=== PATIENT | female | born 1955 | race Caucasian/White ===

== ENCOUNTER → 2016-12-08 | Outpatient (CLI) | payer OTHER ==
[2014-03-03 08:33] VITALS: BP 128/60
--- NOTE | 2016-12-08 19:45 | CARD ---
APPROVED REPORT EXAM: Two-dimensional and M-mode echocardiogram with Doppler and color Doppler. Other Information Quality : Average Rhythm : NSR INDICATION Aortic Valve Disease Murmur 2D DIMENSIONS RVDd2.0 (2.9-3.5cm)Left Atrium(2D)3.7 (1.6-4.0cm) IVSd0.8 (0.7-1.1cm)Aortic Root(2D)2.3 (2.0-3.7cm) LVDd4.4 (3.9-5.9cm)LVOT Diameter2.0 (1.8-2.4cm) PWd0.8 (0.7-1.1cm)LVDs2.3 (2.5-4.0cm) FS (%) 30.9 %SV70.6 ml LVEF(%)60.0 (>50%) Aortic Valve AoV Peak Gaurang.414.7cm/sAoV VTI75.5cm AO Peak GR.68.8mmHgLVOT Peak Gaurang.105.4cm/s LVOT VTI 18.40cmAO Mean GR.43mmHg DOTTY (VMAX)0.59qq3WFJ (VTI)0.80cm2 Mitral Valve MV E Mscypvft22.4cm/sMV DECEL IYNP753xh MV A Oevffizy840.6cm/sMV E Mean Gr.2mmHg MV KKY09nqO/A Ratio0.7 MV A Bauerddt500mwMBN (PHT)2.98cm2 TDI E/Lateral E'15.2E/Medial E'11.9 Pulmonary Valve PV Peak Bzvafmzp26.4cm/sPV Peak Grad.3mmHg RVOT VTI13.3cm Tricuspid Valve TR P. Aklxrcon093ok/sRAP GSRUWBCS1jxJv TR Peak Gr.06wnSnGSQA38pwFf LEFT VENTRICLE The left ventricle is normal size. There is normal left ventricular wall thickness. Left ventricle sy stolic function is normal. The Ejection Fraction is 60%. There is normal LV segmental wall motion. Ti ssue Doppler imaging reveals mild left ventricular diastolic dysfunction. Transmitral Doppler flow pa ttern is Grade I-abnormal relaxation pattern. There is no ventricular septal defect visualized. RIGHT VENTRICLE The right ventricle is normal size. The right ventricular systolic function is normal. ATRIA The left atrium size is normal. The right atrium size is normal. The interatrial septum is intact wit h no evidence for an atrial septal defect or patent foramen ovale as noted on 2-D or Doppler imaging. AORTIC VALVE Doppler and Color Flow revealed no significant aortic regurgitation. The doppler interrogation of thi s prosthetic valve is suboptimal and of doubtfull accuracy The prosthetic aortic valve is not well vi sualized. prosthesis leaflets are not well visualized. MITRAL VALVE The mitral valve leaflets are thickened. There is no mitral valve stenosis. Doppler and Color Flow re vealed mild mitral regurgitation. TRICUSPID VALVE The tricuspid valve is normal in structure. Doppler and Color Flow revealed mild tricuspid regurgitat ion. The PA pressure was estimated at 31 mmHg. There is no tricuspid valve stenosis. PULMONIC VALVE The pulmonic valve is not well visualized. Doppler and Color Flow revealed no pulmonic valvular regur gitation. There is no pulmonic valvular stenosis. GREAT VESSELS The aortic root is normal in size. Normal pulmonary venous flow (Doppler). The IVC is normal in size and collapses >50% with inspiration. PERICARDIAL EFFUSION There is no evidence of significant pericardial effusion. Critical Notification Critical Value: No <Conclusion> Left ventricle systolic function is normal. The Ejection Fraction is 60%. Tissue Doppler imaging reveals mild left ventricular diastolic dysfunction. Transmitral Doppler flow pattern is Grade I-abnormal relaxation pattern. The left atrium size is normal. The right atrium size is normal. The doppler interrogation of this prosthetic valve is suboptimal and of doubtfull accuracy The prosthetic aortic valve is not well visualized. prosthesis leaflets are not well visualized. Doppler and Color Flow revealed mild mitral regurgitation. The mitral valve leaflets are thickened. Doppler and Color Flow revealed mild tricuspid regurgitation. The PA pressure was estimated at 31 mmHg. The pulmonic valve is not well visualized. There is no evidence of significant pericardial effusion.
== END | disposition home or self-care (01) ==
LOC: ECHO 10:58
PROVIDERS: ATTEND Internal Medicine Cardiovascular Disease
DX: I08.1 Rheumatic disorders of both mitral and tricuspid valves (principal); F32.89 Other specified depressive episodes; Z95.2 Presence of prosthetic heart valve; Z87.74 Personal history of (corrected) congenital malformations of heart and circulatory system
CPT/HCPCS: 93306

== ENCOUNTER → 2018-02-23 | Outpatient (CLI) | payer MEDICARE, OTHER ==
[2014-03-03 08:33] VITALS: BP 128/60
--- NOTE | 2018-02-24 14:02 | CARD ---
MR#: [id number] Date of Study: 02/23/2018 Ordering Physician: BRIAN CAIN, Referring Physician: BRIAN CAIN, Tech: Lovely Ervin APPROVED REPORT EXAM: Two-dimensional and M-mode echocardiogram with Doppler and color Doppler. Other Information Quality : AverageHR: 84bpm Rhythm : NSR INDICATION Post Aortic valve replacement 2D DIMENSIONS Left Atrium(2D)3.1 (1.6-4.0cm)IVSd1.1 (0.7-1.1cm) Aortic Root(2D)2.5 (2.0-3.7cm)LVDd4.1 (3.9-5.9cm) LVOT Diameter2.0 (1.8-2.4cm)PWd0.9 (0.7-1.1cm) LVDs2.8 (2.5-4.0cm)FS (%) 32.8 % SV46.6 mlLVEF(%)62.0 (>50%) Aortic Valve AoV Peak Gaurang.370.2cm/sAoV VTI65.0cm AO Peak GR.54.8mmHgLVOT Peak Gaurang.97.0cm/s LVOT VTI 19.87cmAO Mean GR.23mmHg DOTTY (VMAX)0.04sk9BPM (VTI)0.96cm2 Mitral Valve MV E Bvtbzxad16.2cm/sMV DECEL TLTA505eo MV A Vqnezypu39.8cm/sMV YDR74ol E/A Ratio0.8MVA (PHT)3.29cm2 TDI E/Lateral E'14.5E/Medial E'11.0 Pulmonary Valve PV Peak Typwqivi833.6cm/sPV Peak Grad.15mmHg Tricuspid Valve TR P. Fhexoodm802xk/sTR Peak Gr.31mmHg LEFT VENTRICLE The left ventricle is normal size. There is normal left ventricular wall thickness. The left ventricu lar systolic function is normal and the ejection fraction is within normal range. The Ejection Fracti on is 62%. There is normal LV segmental wall motion. Transmitral Doppler flow pattern is Grade I-abno rmal relaxation pattern. RIGHT VENTRICLE The right ventricle is normal size. There is normal right ventricular wall thickness. The right ventr icular systolic function is normal. ATRIA The left atrium size is normal. The right atrium size is normal. The interatrial septum is intact wit h no evidence for an atrial septal defect or patent foramen ovale as noted on 2-D or Doppler imaging. AORTIC VALVE The aortic valve is not well visualized. Calculated aortic valve area is .96 cm2 with maximum pressur e gradient of 55 mmHg and mean pressure gradient of 23 mmHg. This is a mechanical valve and it seems to be working normally There is a bi-leaflet ([employer]) mechanical aortic valve prosthesis. MITRAL VALVE The mitral valve is thickened but opens well. There is no mitral valve stenosis. Doppler and Color-fl ow revealed trace mitral regurgitation. TRICUSPID VALVE The tricuspid valve is normal in structure Doppler and Color Flow revealed trace tricuspid regurgitat ion. PULMONIC VALVE The pulmonic valve is not well visualized. Doppler and Color Flow revealed no pulmonic valvular regur gitation. GREAT VESSELS The aortic root is normal in size. PERICARDIAL EFFUSION There is no evidence of significant pericardial effusion. Critical Notification Critical Value: No <Conclusion> The left ventricular systolic function is normal and the ejection fraction is within normal range. T he Ejection Fraction is 62%. Transmitral Doppler flow pattern is Grade I-abnormal relaxation pattern. The left atrium size is normal. The right atrium size is normal. The aortic valve is not well visualized. Doppler and Color-flow revealed trace mitral regurgitation. The mitral valve is thickened but opens well. Doppler and Color Flow revealed trace tricuspid regurgitation. The pulmonic valve is not well visualized. There is no evidence of significant pericardial effusion. Signed by : Brian Cain MD Electronically Approved : 02/24/2018 14:01:05
== END | disposition home or self-care (01) ==
LOC: ECHO 12:43
PROVIDERS: ATTEND Internal Medicine Cardiovascular Disease
DX: Z48.812 Encounter for surgical aftercare following surgery on the circulatory system (principal); Z95.2 Presence of prosthetic heart valve
CPT/HCPCS: 93306

== ENCOUNTER 2019-03-01 20:31 | Inpatient (IN) | payer BC ==
[~2019-03-01] VITALS: Ht 147.3 cm; Wt 60.3 kg
[~2019-03-01 20:31] MED LIST: BUPR300T3 PO; CA C1TAB38 PO; DULO60CA6 PO; PRAM0.255 PO; PRAM0.5T5 PO; RALO60TA PO; WARF4TAB68 PO; WARF6TAB49 PO
[2019-03-01] MEDS ORDERED: DIPHTH,PERTUSS(ACELL),TET TOX 0.5 ML DISP.SYRIN. VAX IM ONE (21:30)
[2019-03-01] MEDS ORDERED: NEOMY/BACITR/POLYMYXIN OINT PACKET. TP ONE (21:30)
[2019-03-01] MEDS ORDERED: LIDOCAINE 1%/EPI 1:100,000 20 ML VIAL. SQ ONE (21:30)
--- NOTE | 2019-03-01 21:55 | RAD ---
CT head without contrast PQRS statement: CT scans at this facility use dose reduction including either automated exposure control, iterative reconstructions, and /or weight based radiation dosing via mA and kV modification when appropriate to reduce radiation dose to as low as reasonably achievable. HISTORY: Fell and hit head, anticoagulated. COMPARISON: CT head January 13, 2019. TECHNIQUE: Noncontrast imaging of the head with coronal reconstructions was acquired. FINDINGS: Mild enlargement of the retrocerebellar cistern an anatomic variant stable to the prior study. Prior right frontoparietal craniotomy with mild subjacent dural thickening is stable. Generalized brain atrophy is stable. Subtle linear density within the posterior right sylvian fissure and upper temporal lobe sulci images 13-15 new from prior imaging likely a small volume of acute subarachnoid hemorrhage. No mass, hydrocephalus or new or acute infarction. 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 Imaged orbits, mastoids and bones are unremarkable. Mild right periorbital soft tissue edema and swelling. IMPRESSION: Small volume of acute subarachnoid hemorrhage within the right sylvian fissure and temporal lobe sulci as described above, new from prior imaging. FOR INTERNAL CODING PURPOSES Critical result: Findings discussed with SONIA RAMAN MD at 03/01/2019 9:52 PM. RESULT CODE: (C) Electronically signed by: Leeroy Harvey MD (03/01/2019 9:53 PM) [facility]
--- NOTE | 2019-03-01 22:01 | PHYS DOC ---
Past Medical History Past Medical History: Other Additional Past Medical Histor: subdural hematoma (SONIA RAMAN APRN) Past Surgical History: Appendectomy, Hip Replacement, Tonsillectomy, Other Additional Past Surgical Histo: PROSTATIC AORTIC VALVE, HERNIA (SONIA RAMAN APRN) Alcohol Use: None Drug Use: None (SONIA RAMAN APRN) Attending Signature I have participated in the care of this patient and I have reviewed and agree with all pertinent clinical information above including history, exam, and recommendations. (IZAIAH PERES MD) Adult General Chief Complaint Chief Complaint: MECHANICAL FALL HPI HPI Patient is a 63 year old female who presents to the emergency department with complaints of right forehead lacerations, an abrasion to her left palm, and dull headache. Patient states she was walking up a hill when she tripped on the sidewalk and fell forward hitting her head on the cement. She denies any loss of consciousness, nausea, vomiting, vision changes, neck pain, back pain, numbness, tingling, or weakness. Patient states earlier this year she had a subdural bleed in which she can have surgery for. She currently rates her pain as 3 out of 10 on the pain scale, she denies any alleviating or exacerbating factors. Patient is unsure of when her last tetanus shot was. She states that she currently takes Coumadin for her aortic valve replacement. (SONIA RAMAN APRN) Review of Systems Review of Systems Constitutional: Denies fever or chills [] Eyes: Denies change in visual acuity, redness, or eye pain [] HENT: Denies nasal congestion or sore throat [] Respiratory: Denies cough or shortness of breath [] Cardiovascular: No additional information not addressed in HPI [] GI: Denies abdominal pain, nausea, vomiting, or diarrhea [] Musculoskeletal: Denies back pain or joint pain [] Integument: Denies rash; see history of present illness Neurologic: Denies focal weakness or sensory changes; see history of present illness Complete systems were reviewed and found to be within normal limits, except as documented in this note. (SONIA RAMAN APRN) Current Medications Current Medications Current Medications Medications (Trade) Dose Ordered Sig/Siela Start Time Stop Time Status Last Admin Dose Admin Diphtheria/ Tetanus/Acell Pertussis (Boostrix) 0.5 ml ONCE ONCE 03/01/19 21:30 03/01/19 21:31 DC 03/01/19 21:32 0.5 ML Lidocaine/ Epinephrine (LIDOCAINE 1%-EPI 1:100,000 Multi-Dose) 20 ml 1X ONCE 03/01/19 21:30 03/01/19 21:31 DC Neomycin/ Polymyxin/ Bacitracin (Triple Antibiotic Ointment) 1 pkt 1X ONCE 03/01/19 21:30 03/01/19 21:31 DC (IZAIAH PERES MD) Allergies Allergies Allergies Coded Allergies Type Severity Reaction Last Updated Verified Tetracyclines Allergy Intermediate VOMITING 03/03/14 Yes ampicillin Allergy Intermediate RASH 03/03/14 Yes vancomycin Allergy Intermediate Hives 12/10/18 Yes (IZAIAH PERES MD) Physical Exam Physical Exam Constitutional: Well developed, well nourished, no acute distress, non-toxic appearance. [] HENT: Normocephalic, atraumatic, bilateral external ears normal, oropharynx moist, no oral exudates, nose normal. [] Eyes: PERRLA, EOMI, conjunctiva normal, no discharge. [] Neck: Normal range of motion, no tenderness, supple, no stridor. [] Cardiovascular:Heart rate regular rhythm, no murmur [] Lungs & Thorax: Bilateral breath sounds clear to auscultation [] Skin: Warm, dry, no erythema, no rash; 2 lacerations noted to right forehead the superior laceration is 1 cm and L-shaped without any active bleeding, a second laceration is 3 cm and is located just superior to the right eye extending through the eyebrow out any active bleeding [] Back: No tenderness, no CVA tenderness. [] Extremities: No cyanosis, no clubbing, ROM intact, no edema. [] Neurologic: Alert and oriented X 3, normal motor function, normal sensory function, no focal deficits noted. [] Psychologic: Affect normal, judgement normal, mood normal. [] (SONIA RAMAN APRN) Current Patient Data Vital Signs Vital Signs Date Time Temp Pulse Resp B/P (MAP) Pulse Ox O2 Delivery O2 Flow Rate FiO2 03/01/19 20:44 98.1 98 16 163/60 (94) 95 Room Air 98.1 (IZAIAH PERES MD) Lab Values Laboratory Tests Test 03/01/19 21:55 White Blood Count 13.1 x10^3/uL (4.0-11.0) H Red Blood Count 4.98 x10^6/uL (3.50-5.40) Hemoglobin 13.3 g/dL (12.0-15.5) Hematocrit 40.9 % (36.0-47.0) Mean Corpuscular Volume 82 fL (79-100) Mean Corpuscular Hemoglobin 27 pg (25-35) Mean Corpuscular Hemoglobin Concent 33 g/dL (31-37) Red Cell Distribution Width 13.4 % (11.5-14.5) Platelet Count 315 x10^3/uL (140-400) Neutrophils (%) (Auto) 84 % (31-73) H Lymphocytes (%) (Auto) 8 % (24-48) L Monocytes (%) (Auto) 7 % (0-9) Eosinophils (%) (Auto) 1 % (0-3) Basophils (%) (Auto) 1 % (0-3) Neutrophils # (Auto) 11.0 x10^3/uL (1.8-7.7) H Lymphocytes # (Auto) 1.0 x10^3/uL (1.0-4.8) Monocytes # (Auto) 0.9 x10^3/uL (0.0-1.1) Eosinophils # (Auto) 0.1 x10^3/uL (0.0-0.7) Basophils # (Auto) 0.1 x10^3/uL (0.0-0.2) Prothrombin Time 27.8 SEC (11.7-14.0) H Prothrombin Time INR 2.6 (0.8-1.1) H Activated Partial Thromboplast Time 36 SEC (24-38) Laboratory Tests 03/01/19 21:55 (IZAIAH PERES MD) Lab Values Laboratory Tests Test 03/01/19 21:55 White Blood Count 13.1 x10^3/uL (4.0-11.0) H Red Blood Count 4.98 x10^6/uL (3.50-5.40) Hemoglobin 13.3 g/dL (12.0-15.5) Hematocrit 40.9 % (36.0-47.0) Mean Corpuscular Volume 82 fL (79-100) Mean Corpuscular Hemoglobin 27 pg (25-35) Mean Corpuscular Hemoglobin Concent 33 g/dL (31-37) Red Cell Distribution Width 13.4 % (11.5-14.5) Platelet Count 315 x10^3/uL (140-400) Neutrophils (%) (Auto) 84 % (31-73) H Lymphocytes (%) (Auto) 8 % (24-48) L Monocytes (%) (Auto) 7 % (0-9) Eosinophils (%) (Auto) 1 % (0-3) Basophils (%) (Auto) 1 % (0-3) Neutrophils # (Auto) 11.0 x10^3/uL (1.8-7.7) H Lymphocytes # (Auto) 1.0 x10^3/uL (1.0-4.8) Monocytes # (Auto) 0.9 x10^3/uL (0.0-1.1) Eosinophils # (Auto) 0.1 x10^3/uL (0.0-0.7) Basophils # (Auto) 0.1 x10^3/uL (0.0-0.2) Prothrombin Time 27.8 SEC (11.7-14.0) H Prothrombin Time INR 2.6 (0.8-1.1) H Activated Partial Thromboplast Time 36 SEC (24-38) Laboratory Tests 03/01/19 21:55 (SONIA RAMAN APRN) EKG EKG [] (SONIA RAMAN APRN) Radiology/Procedures Radiology/Procedures PROCEDURE: CT HEAD WO CONTRAST CT head without contrast PQRS statement: CT scans at this facility use dose reduction including either automated exposure control, iterative reconstructions, and /or weight based radiation dosing via mA and kV modification when appropriate to reduce radiation dose to as low as reasonably achievable. HISTORY: Fell and hit head, anticoagulated. COMPARISON: CT head January 13, 2019. TECHNIQUE: Noncontrast imaging of the head with coronal reconstructions was acquired. FINDINGS: Mild enlargement of the retrocerebellar cistern an anatomic variant stable to the prior study. Prior right frontoparietal craniotomy with mild subjacent dural thickening is stable. Generalized brain atrophy is stable. Subtle linear density within the posterior right sylvian fissure and upper temporal lobe sulci images 13-15 new from prior imaging likely a small volume of acute subarachnoid hemorrhage. No mass, hydrocephalus or new or acute infarction. 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 Imaged orbits, mastoids and bones are unremarkable. Mild right periorbital soft tissue edema and swelling. IMPRESSION: Small volume of acute subarachnoid hemorrhage within the right sylvian fissure and temporal lobe sulci as described above, new from prior imaging. FOR INTERNAL CODING PURPOSES Critical result: Findings discussed with SONIA RAMAN MD at 03/01/2019 9:52 PM. Laceration #1 Repair by me: Anesthesia: 1% lidocaine locally with 1% epi Location: Superior right forehead Tendon/Joint/Nerves: No injury Foreign body: None detected after copious irrigation and exploration Technique: 3 Simple Interrupted Sutures with 6-0 Ethilon Complexity: No subcutaneous sutures/mucosal repair/edge excision Post Closure Length: 1 cm Laceration #2 Repair by me: Anesthesia: 1% lidocaine locally with 1% epi Location: Inferior right forehead Tendon/Joint/Nerves: No injury Foreign body: None detected after copious irrigation and exploration Technique: 5 Simple Interrupted Sutures with 6-0 Ethilon Complexity: No subcutaneous sutures/mucosal repair/edge excision Post Closure Length: 3 cm Patient's bleeding was easily controlled in the department and there is no indication of anemia. No evidence of compartment syndrome, neurologic injury, vascular injury, open joint, tendon laceration, or foreign body. (SONIA RAMAN QUILL FIXER) Course & Med Decision Making Course & Med Decision Making Pertinent Labs and Imaging studies reviewed. (See chart for details) dx: Acute subarachnoid hemorrhage, facial laceration 2157- Spoke with Renuka ORNAMENT STITCHER with Dr. Brito will admit patient to ICU with q2 hour neuro checks. 2204- Spoke with Dr. Aguillon who is the admitting physician, and care was assumed following discussion of patient. Patient's vital signs stable. Patient remains afebrile, appears nontoxic, respirations even and unlabored. Patient will be admitted to the ICU floor. Patient's case and plan of care also discussed with Dr. Peres 2239- Advised Renuka of pt INR will check with cardilogy about reversing coumadin, goal is INR of 1.4 2253- Spoke with Dr. Salcido, advised of need to reverse coumadin. Dr. Salcido is in agreement will order vitamin K and FFP [] (SONIA RAMAN APRN) Dragon Disclaimer Dragon Disclaimer This electronic medical record was generated, in whole or in part, using a voice recognition dictation system. (SONIA RAMAN APRN) Departure Departure Impression: Primary Impression: Subarachnoid hemorrhage Additional Impression: Facial laceration Disposition: ADMITTED INPATIENT Admitting Physician: Jim Aguillon (SONIA RAMAN QUILL FIXER) Condition: STABLE Referrals: BERTA REEDER MD (PCP) Problem Qualifiers Additional Impression: Facial laceration Encounter type: initial encounter Qualified Codes: S01.81XA - Laceration without foreign body of other part of head, initial encounter SONIA RAMAN APRN Mar 01, 2019 22:01 IZAIAH PERES MD Mar 02, 2019 00:54
[2019-03-01 22:03] LABS: BASO # 0.1 x10^3/uL (0.0-0.2); BASO % 1 % (0-3); EOS # 0.1 x10^3/uL (0.0-0.7); EOS % 1 % (0-3); HEMATOCRIT 40.9 % (36.0-47.0); HEMOGLOBIN 13.3 g/dL (12.0-15.5); LYMPH % 8 % (24-48); MEAN CORPUSCULAR HEMOGLOBIN 27 pg (25-35); MEAN CORPUSCULAR HGB CONC 33 g/dL (31-37); MEAN CORPUSCULAR VOLUME 82 fL (79-100); MONO # 0.9 x10^3/uL (0.0-1.1); MONO % 7 % (0-9); NEUT % 84 % (31-73); PLATELET COUNT 315 x10^3/uL (140-400); RED BLOOD COUNT 4.98 x10^6/uL (3.50-5.40); RED CELL DISTRIBUTION WIDTH 13.4 % (11.5-14.5); WHITE BLOOD COUNT 13.1 x10^3/uL (4.0-11.0)
[2019-03-01 22:14] LABS: PROTHROMBIN TIME PATIENT 27.8 SEC (11.7-14.0)
[2019-03-01] MEDS ORDERED: MORPHINE SULFATE 4 MG/ML VIAL. IV PRN (23:00)
[2019-03-01] MEDS ORDERED: ONDANSETRON PF 4 MG/2 ML VIAL. IV PRN (23:00)
[2019-03-01] MEDS ORDERED: PHYTONADIONE 10 MG/ML AMPUL. SQ ONE (23:00)
[2019-03-01] MEDS ORDERED: hydrALAZINE 20 MG/ML VIAL. IVP ONE (23:15)
[2019-03-02] VITALS (23 sets, daily range): BP systolic 114–149; BP diastolic 50–75
--- NOTE | 2019-03-02 01:00 | NUR ---
Patient admitted to room 110 from ER. Patient moved self from ER cart to ICU bed. Monitor on. SR/ST noted. Patient A&Ox4. JAIR. JOSÉ. . stitched laceration on right forehead noted. Patient with swollen and bruised right eyebrow. No c/o pain or discomfort at this time. Call light is within reach. Blood consent obtained from patient. Will monitor.
[2019-03-02] MEDS ORDERED: diphenhydrAMINE 50 MG/ML VIAL IVP PRN (04:45)
--- NOTE | 2019-03-02 05:17 | NUR ---
0232- First unit of FFP started. 0333- Patient c/o h/a at 4/10 on scale. Morphine 4mg IV given per PRN order. VSS. 0400-First unit of FFP ended. Patient c/o itching all over. Small red bumps noted on patient's skin. VSS. Patient states that she has never had a reaction morphine. Blood bank notified of rash. Lin from blood bank told this nurse to call the doctor and see if he wants the second unit of FFP given. 0427-Dr. Aguillon notified of patient rash in relation to FFP and the morphine that was given. Order received for benadryl IV PRN and that he does not want patient to receive the second unit of FFP. VSS. Will monitor.
--- NOTE | 2019-03-02 09:20 | PDOC ---
Provider Note Provider Note dictated MARGO MACEDO MD Mar 02, 2019 09:20
--- NOTE | 2019-03-02 10:14 | HP ---
ADMIT DATE: CHIEF COMPLAINT: Fall. 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 Brito. She has had slow recovery, but is done better until recently; and then, on the day of admission had a fall, tripping on the sidewalk and struck her head. She had a laceration on the right forehead repaired in the ER, but CT scan showed evidence of a small amount of subarachnoid hemorrhage in the right sylvian fissure. She is anticoagulated on warfarin for aortic valve replacement, so she was given vitamin K and FFP for an INR of 2.7 and transferred to the ICU, where she is alert with mild headache and dizziness as her only complaints. Past surgical history is well documented in the old records. No specific drug allergies or other known medical problems. SOCIAL HISTORY: She is , lives alone, not employed, nondrinker, nonsmoker. FAMILY HISTORY: Unremarkable. REVIEW OF SYSTEMS: No other complaints. OBJECTIVE: HEENT: She has sutured vertical right forehead laceration. There is some bruising around that area and around the right eye. EOMs are full. Rest is unremarkable. NECK: No masses, nodes or bruits. LUNGS: Clear. CARDIOVASCULAR: Regular rate. The aortic valve murmur is heard from valve replacement. ABDOMEN: Soft, benign and nontender. EXTREMITIES: Unremarkable. NEUROLOGIC: Physiologic, nonfocal, moves all extremities, oriented x 4. Cranial nerves appear to be intact. ASSESSMENT: Traumatic brain injury with a small amount of subarachnoid hemorrhage in an anticoagulated patient. PLAN: For Neurosurgical consultation. MARGO MACEDO MD DR: GENE/lea JOB#: [id number] / [id number]
[2019-03-02 10:28] LABS: CALCIUM 8.5 mg/dL (8.5-10.1); CREATININE 0.6 mg/dL (0.6-1.0); POTASSIUM 3.8 mmol/L (3.5-5.1)
--- NOTE | 2019-03-02 12:33 | RAD ---
Examination: CT HEAD WO CONTRAST History: Subarachnoid hemorrhage follow-up Comparison/Correlation: 03/01/2019 CT head without contrast Findings: Axial images of the head were obtained without contrast. Atrophy is present. No midline shift, or mass effect. Right high frontal flory hole defect is present. Soft tissue thickening and/or subgaleal fluid of the frontal scalp again seen. Soft tissue edema or swelling of the right eyelid noted. Previously described temporal sulcus linear density is less evident in the interval best seen currently on images 15-16 of series 2. Impression: Subarachnoid hemorrhage previously reported is less evident in the interval. PQRS Compliance Statement: One or more of the following individualized dose reduction techniques were utilized for this examination: 1. Automated exposure control 2. Adjustment of the mA and/or kV according to patient size 3. Use of iterative reconstruction technique Electronically signed by: Dion Stafford MD (03/02/2019 12:30 PM) [facility]
[2019-03-02] MEDS: DULoxetine HCL 30 MG CAPSULE.DR PO SCH (14:21)
[2019-03-02] MEDS: buPROPion XL 150 MG TAB.ER.24H. PO SCH (14:21)
[2019-03-02] MEDS: RALOXIFENE 60 MG TABLET. PO SCH (14:21)
--- NOTE | 2019-03-02 14:47 | PDOC ---
Provider Note Provider Note Patient seen and examined at 1245 tripped and fell on curb yesterday CT head with Small SAH exam: neuro intact, sutured laceration over right eye with bruising F/U CT stable Coumadin was reversed in ED ok to transfer to floor will follow SIMON GEE APRN Mar 02, 2019 14:47
--- NOTE | 2019-03-02 15:22 | NUR ---
RN NOTE patient transferred to [facility] report called to Anastasia BLAS. patient taken up via wheelchair with this RN. patients notified of transfer
--- NOTE | 2019-03-02 16:28 | NUR ---
SS following for discharge planning. SS reviewed pt chart. Pt transferred from ICU to room 660. Pt is from home and is currently on room air. Kimberly WAITE, notified.
[2019-03-02] MEDS ORDERED: ACETAMINOPHEN 325 MG TABLET. PO PRN (18:15)
[2019-03-02] MEDS: CALCIUM CARB/VIT D3 500/200 TABLET. PO SCH (18:15)
[2019-03-02] MEDS: PRAMIPEXOLE 0.25 MG TABLET. PO SCH (21:40)
[2019-03-03 03:39] VITALS: BP 129/44
[2019-03-03 05:27] LABS: PROTHROMBIN TIME PATIENT 16.5 SEC (11.7-14.0)
[2019-03-03 07:15] VITALS: BP 117/62
--- NOTE | 2019-03-03 08:45 | PDOC ---
Provider Note Provider Note remains alert, vss- inr 1.4, sah smaller last ct- will not resume warf until 03/04 re aortic valve need- may need short term rehab as she lives alone MARGO MACEDO MD Mar 03, 2019 08:45
[2019-03-03] MEDS: RALOXIFENE 60 MG TABLET. PO SCH (09:06)
[2019-03-03] MEDS: buPROPion XL 150 MG TAB.ER.24H. PO SCH (09:06)
[2019-03-03] MEDS: DULoxetine HCL 30 MG CAPSULE.DR PO SCH (09:06)
[2019-03-03 11:23] VITALS: BP 114/60
[2019-03-03 15:00] VITALS: BP 122/64
[2019-03-03] MEDS: CALCIUM CARB/VIT D3 500/200 TABLET. PO SCH (17:49)
[2019-03-03 19:55] VITALS: BP 121/65
[2019-03-03] MEDS: PRAMIPEXOLE 0.25 MG TABLET. PO SCH (21:21)
[2019-03-03 23:31] VITALS: BP 133/69
[2019-03-04 03:52] VITALS: BP 122/55
[2019-03-04 05:17] LABS: PROTHROMBIN TIME PATIENT 13.8 SEC (11.7-14.0)
[2019-03-04 07:00] VITALS: BP 123/71
[2019-03-04] MEDS: RALOXIFENE 60 MG TABLET. PO SCH (09:06)
[2019-03-04] MEDS: buPROPion XL 150 MG TAB.ER.24H. PO SCH (09:06)
[2019-03-04] MEDS: CALCIUM CARB/VIT D3 500/200 TABLET. PO SCH (09:06)
[2019-03-04] MEDS: DULoxetine HCL 30 MG CAPSULE.DR PO SCH (09:06)
--- NOTE | 2019-03-04 10:41 | PN ---
DATE: 03/04/2019 DAILY PROGRESS NOTE LOCATION: She is in room 660. SUBJECTIVE: The patient is awake, alert, has no major complaints other than her balance being somewhat off when she is working with physical therapy. OBJECTIVE: VITAL SIGNS: Stable. She is afebrile. She is awake, alert, oriented. She does have evidence of facial trauma on exam. CHEST: Clear. HEART: Regular. ABDOMEN: Benign. LABORATORY DATA: Nonfocal. Last CT of the head 2 days ago shows decrease in size of the subarachnoid hemorrhage. Therapy notes indicate a new on one and home with home health on the other with therapy planned for again today. IMPRESSION: 1. Subarachnoid hemorrhage, improving. 2. Prosthetic aortic valve with need of anticoagulation with anticoagulation restarted at this point in time. 3. Bañuelos syndrome. PLAN: Continue therapy with determination of appropriate discharge destination. Otherwise, same. ZAC REZA MD DR: BRITANY/lea JOB#: [id number] / [id number]
[2019-03-04 11:00] VITALS: BP 119/63
--- NOTE | 2019-03-04 12:24 | NUR ---
Received call from Dr. Dunn's nurse practitioner at 1220, this nurse was notified that the patient will have no surgical intervention at this time. The patient's coumadin can be resumed, ok for discharge from neurosurgical standpoint, a repeat cranial CT scan will be done in a week for follow up.
[2019-03-04 15:00] VITALS: BP 135/55
[2019-03-04] MEDS: WARFARIN 4 MG TABLET. PO SCH (16:20)
[2019-03-04 19:35] VITALS: BP 138/56
[2019-03-04] MEDS: PRAMIPEXOLE 0.25 MG TABLET. PO SCH (21:46)
[2019-03-04 23:35] VITALS: BP 131/63
[2019-03-05 03:35] VITALS: BP 128/63
[2019-03-05 05:18] LABS: PROTHROMBIN TIME PATIENT 14.3 SEC (11.7-14.0)
[2019-03-05 07:00] VITALS: BP 152/68
[2019-03-05] MEDS: RALOXIFENE 60 MG TABLET. PO SCH (09:06)
[2019-03-05] MEDS: DULoxetine HCL 30 MG CAPSULE.DR PO SCH (09:06)
[2019-03-05] MEDS: buPROPion XL 150 MG TAB.ER.24H. PO SCH (09:06)
[2019-03-05 10:49] VITALS: BP 147/62
--- NOTE | 2019-03-05 12:59 | PN ---
DATE: 03/05/2019 DAILY PROGRESS NOTE LOCATION: Room 660. SUBJECTIVE: The patient is awake, alert, has no major complaints. I was thinking this morning that she should probably do a short stint of rehabilitation living at home alone and being weaker. OBJECTIVE: VITAL SIGNS: Stable. She is afebrile. GENERAL: Again is awake, alert. HEENT: She has a healing laceration on right forehead from the fall. CHEST: Clear. HEART: Regular. ABDOMEN: Benign. LABORATORY DATA: INR this morning is 1.1 after reinstitution of warfarin yesterday. She is stable with no focal neurological deficits. IMPRESSION: 1. Subarachnoid hemorrhage, improving. 2. Prosthetic aortic valve with warfarin restarted. 3. Bañuelos syndrome. PLAN: Continue present, likely SNU first of the week. We will await blessings from Neurosurgery that no further workup needs to be done at this point in time prior to discharge. ZAC REZA MD DR: BRITANY/lea JOB#: [id number] / [id number]
[2019-03-05 14:48] VITALS: BP 145/67
[2019-03-05] MEDS: CALCIUM CARB/VIT D3 500/200 TABLET. PO SCH (16:57)
[2019-03-05] MEDS: WARFARIN 4 MG TABLET. PO SCH (16:57)
[2019-03-05 19:35] VITALS: BP 128/69
[2019-03-05] MEDS: PRAMIPEXOLE 0.25 MG TABLET. PO SCH (20:25)
[2019-03-05 23:35] VITALS: BP 126/66
[2019-03-06 03:35] VITALS: BP 128/77
[2019-03-06 05:38] LABS: PROTHROMBIN TIME PATIENT 14.4 SEC (11.7-14.0)
[2019-03-06 07:40] VITALS: BP 111/47
[2019-03-06] MEDS: DULoxetine HCL 30 MG CAPSULE.DR PO SCH (07:44)
[2019-03-06] MEDS: buPROPion XL 150 MG TAB.ER.24H. PO SCH (07:45)
[2019-03-06] MEDS: RALOXIFENE 60 MG TABLET. PO SCH (07:45)
--- NOTE | 2019-03-06 08:52 | PDOC3 ---
Discharge Summary Date of Admission: Mar 01, 2019 Date of Discharge: Mar 06, 2019 Follow-Up: 1-2 days (for suture removal and INR check, will schedule follow up CT Head later this week also) Admitting Diagnosis comment: Subarachnoid hemorrhage 2/2 fall Anticoagulation for hx of aortic valve replacement FINAL DIAGNOSIS Same as above Brief Hospital Course Ms. Clayton is a 63 year old female with Bañuelos syndrome and history of aortic valve replacement, who had traumatic bilateral subdural hematoma evacuated by right craniotomy in November of this year by Dr. Brito. She has had slow recovery, but is done better until recently; and then, on the day of admission had a fall, tripping on the sidewalk and struck her head. She had a laceration on the right forehead repaired in the ER, but CT scan showed evidence of a small amount of subarachnoid hemorrhage in the right sylvian fissure and temporal lobe sulci. She is anticoagulated on warfarin for aortic valve replacement, so she was given vitamin K and FFP for an INR of 2.7 and transferred to the ICU to be observed. She complained only of mild headache and dizziness. A follow up CT on 03/02/19 showed interval improvement. She was able to resume warfarin and showed no worsening in symptoms. On day of discharge, her INR was 1.2. Neurosurgery believed she was stable to be followed up as an outpatient, though she is unable to see Dr. Brito outside of the hospital due to being out of network for her insurance, so I will order a Head CT for follow up later this week. She will follow up in clinic on 03/08 for suture removal and INR check. She will be discharged to home with home health and focus on PT for balance, gait and transfers to decrease her fall risk. No medication changes were made. Ms. Clayton did receive a TDaP vaccination in the ED due to her laceration. CONDITION AT DISCHARGE: Improved, Stable Discharge Medications No medication changes were made. Vital Signs Vital Signs Date Time Temp Pulse Resp B/P (MAP) Pulse Ox O2 Delivery O2 Flow Rate FiO2 03/06/19 08:00 Room Air 03/06/19 07:40 98.5 94 18 111/47 (68) 95 98.5 Labs Laboratory Tests Test 03/05/19 04:00 03/06/19 04:55 Prothrombin Time 14.3 SEC (11.7-14.0) 14.4 SEC (11.7-14.0) Prothromb Time International Ratio 1.1 (0.8-1.1) 1.2 (0.8-1.1) Laboratory Tests Test 03/06/19 04:55 Prothrombin Time 14.4 SEC (11.7-14.0) Prothromb Time International Ratio 1.2 (0.8-1.1) Allergies Allergies Coded Allergies Type Severity Reaction Last Updated Verified Tetracyclines Allergy Intermediate VOMITING 03/03/14 Yes ampicillin Allergy Intermediate RASH 03/03/14 Yes vancomycin Allergy Intermediate Hives 12/10/18 Yes Disposition/Orders: D/C to Home w/ HH BERTA REEDER MD Mar 06, 2019 08:52
--- NOTE | 2019-03-06 10:32 | PDOC ---
Provider Note Provider Note patient may dc from NS standpoint will arrange for f/u CT head later this week for review LAZARUS REED MD Mar 06, 2019 10:32
--- NOTE | 2019-03-06 10:55 | NUR ---
Discharge Note: WAQAS LUGO J6 [facility] Discharge instructions and discharge home medications reviewed with Patient and a copy given. All questions have been answered and understanding verbalized. The following instructions and handouts were given: d/c instructions Discontinued lines and drains: Peripheral IV intact. Patient discharged to Home w/services with Spouse via Wheelchair
[2019-03-06] MEDS ORDERED: WARFARIN 7.5 MG TABLET. PO ONE (16:00)
== END 2019-03-06 12:18 | disposition home health service (06) | DRG 86 ==
LOC: ER 20:31 → 1 WEST ICU 22:05 → 6 SOUTH 03-02 15:12
PROVIDERS: ADMIT Family Medicine; ATTEND Family Medicine
PROC: 0HQ1XZZ Repair Face Skin, External Approach (ICD-10-PCS; principal; 2019-03-01)
PROC: 30233R1 Transfusion of Nonautologous Platelets into Peripheral Vein, Percutaneous Approach (ICD-10-PCS; 2019-03-02)
DX: S06.6X0A Traumatic subarachnoid hemorrhage without loss of consciousness, initial encounter (principal); R65.10 Systemic inflammatory response syndrome (SIRS) of non-infectious origin without acute organ dysfunction; S01.81XA Laceration without foreign body of other part of head, initial encounter; S60.512A Abrasion of left hand, initial encounter; Z96.649 Presence of unspecified artificial hip joint; W01.0XXA Fall on same level from slipping, tripping and stumbling without subsequent striking against object, initial encounter; Y93.01 Activity, walking, marching and hiking; Y99.8 Other external cause status; Z88.1 Allergy status to other antibiotic agents; Z88.0 Allergy status to penicillin; Z79.01 Long term (current) use of anticoagulants; Z90.49 Acquired absence of other specified parts of digestive tract; Z95.2 Presence of prosthetic heart valve; Y92.828 Other wilderness area as the place of occurrence of the external cause; Q96.9 Turner's syndrome, unspecified; Z91.81 History of falling
CPT/HCPCS: 12013; 36415; 36430; 70450; 80048; 85025; 85610; 85730; 86850; 86900; 86901; 86927; 90471; 90715; J1200; J2270; J3430; P9017; 97110; 97116; 97530; 99285-25; G0378

== ENCOUNTER → 2019-03-13 | Outpatient (CLI) | payer BC ==
[2019-03-06 07:40] VITALS: BP 111/47
--- NOTE | 2019-03-13 15:50 | KCIC ---
CT HEAD WO CONTRAST History: Subarachnoid hemorrhage Comparison: Exams dating back to 03/01/2019 Technique: Noncontrast CT imaging was performed of the head. Exposure: One or more of the following individualized dose reduction techniques were utilized for this examination: 1. Automated exposure control 2. Adjustment of the mA and/or kV according to patient size 3. Use of iterative reconstruction technique. Findings: No subarachnoid hemorrhage is identified on this exam. There again has been right frontal parietal craniotomy. There is no new intra-axial mass effect or midline shift. There is again [id number] generalized supratentorial atrophy, ventricular size stable. There is again what likely represents represents a small lacunar infarct of the right posterior insula. Prominence of retrocerebellar cistern is stable. There is incomplete fusion of posterior arch of C1 on developmental basis as seen previously. Mastoid air cells and visualized paranasal sinuses are aerated. Impression: 1. No intra-axial hemorrhage is identified on this exam. There is generalized supratentorial atrophy as seen previously. Electronically signed by: Rick Bolton MD (03/13/2019 3:47 PM) [id number]
== END | disposition home or self-care (01) ==
LOC: KCIC CT 12:03
PROVIDERS: ATTEND Family Medicine
DX: G31.89 Other specified degenerative diseases of nervous system (principal); M43.22 Fusion of spine, cervical region
CPT/HCPCS: 70450

== ENCOUNTER 2019-08-13 17:08 | Day surgery (SDC) | payer OTHER ==
[~2019-08-13 17:08] MED LIST changes: +BUPR150T8 PO; +WARF6TAB47 PO; +[UNRECOGNIZED DRUG - OTHER] PO
--- NOTE | 2019-08-13 20:22 | PDOC ---
Provider Note Provider Note called for arterial line placement. Unable to palpate radial arteries and poor Doppler response. Left femoral arterial #20 femoral catheter placed using sterile technique. Good blood return and wave form. Op site and taped securely SAL PATEL CRNA Aug 13, 2019 20:22
[2019-08-13] MEDS ORDERED: IV RINGERS,LACTATED 1000ML 1,000 ML IV ONE ×2 (20:45→23:30)
[2019-08-13 20:47] LABS: PROTHROMBIN TIME PATIENT 22.6 SEC (11.7-14.0)
[2019-08-13 20:51] LABS: AMYLASE 233 U/L (25-115); CALCIUM 8.3 mg/dL (8.5-10.1); CREATININE 0.6 mg/dL (0.6-1.0); GFR 100.6; LACTATE DEHYDROGENASE 292 U/L (81-234); POTASSIUM 3.5 mmol/L (3.5-5.1)
[2019-08-13 21:22] LABS: BILIRUBIN,URINE NEGATIVE (NEG); CLARITY,URINE CLEAR; COLOR,URINE YELLOW; NITRITE,URINE NEGATIVE (NEG); PROTEIN,URINE 30 mg/dL (NEG-TRACE); UROBILINOGEN,URINE 0.2 mg/dL (0.2 mg/dL)
[2019-08-13 21:25] LABS: BASE EXCESS ABG 0 mmol/L (-3-3); HCO3 ABG 24 mmol/L (21-28); PCO2 ABG 37 mmHg (35-46); PO2 ABG 467 mmHg (65-108); SAT O2 ABG 99 % (92-99)
[2019-08-13 21:29] LABS: RBC,URINE >40 /HPF (0-2)
[2019-08-13 21:30] LABS: WBC,URINE 20-40 /HPF (0-4)
[2019-08-13 21:31] LABS: BACTERIA,URINE 0 /HPF (0-FEW)
[2019-08-13 21:31] LABS: FIO2 ABG 100
[2019-08-13] MEDS: IV RINGERS,LACTATED 1000ML 1,000 ML IV SCH (21:45)
[2019-08-13] MEDS ORDERED: VECURONIUM BOLUS 10 MG VIAL. IV ONE (22:00)
[2019-08-13 23:10] LABS: BASO % 0 % (0-3); EOS % 0 % (0-3); HEMATOCRIT 35.9 % (36.0-47.0); HEMOGLOBIN 11.7 g/dL (12.0-15.5); LYMPH # 0.9 x10^3/uL (1.0-4.8); LYMPH % 5 % (24-48); MEAN CORPUSCULAR HEMOGLOBIN 27 pg (25-35); MEAN CORPUSCULAR HGB CONC 33 g/dL (31-37); MEAN CORPUSCULAR VOLUME 82 fL (79-100); MONO # 2.1 x10^3/uL (0.0-1.1); MONO % 10 % (0-9); NEUT # 16.8 x10^3/uL (1.8-7.7); NEUT % 85 % (31-73); PLATELET COUNT 227 x10^3/uL (140-400); RED BLOOD COUNT 4.39 x10^6/uL (3.50-5.40); RED CELL DISTRIBUTION WIDTH 16.2 % (11.5-14.5); WHITE BLOOD COUNT 19.8 x10^3/uL (4.0-11.0)
[2019-08-13 23:18] LABS: ALBUMIN 3.3 g/dL (3.4-5.0); DIRECT BILIRUBIN 0.1 mg/dL (0.0-0.2); MAGNESIUM 1.9 mg/dL (1.8-2.4); PHOSPHORUS 2.7 mg/dL (2.6-4.7); TOTAL BILIRUBIN 0.6 mg/dL (0.2-1.0); TOTAL PROTEIN 6.5 g/dL (6.4-8.2)
[2019-08-13] MEDS ORDERED: POTASSIUM CHLORIDE 20 MEQ TABLET.ER. PO ONE (23:45)
[2019-08-14 00:25] VITALS: BP 125/62
[2019-08-14] MEDS: VASOPRESSIN 20 UNIT in IV DEXTROSE 5% 100ML 100 ML IV PRN ×2 (00:32→18:39)
[2019-08-14 00:40] VITALS: BP 148/76
[2019-08-14 01:25] VITALS: BP 163/86
[2019-08-14 02:03] LABS: BASE EXCESS ABG 1 mmol/L (-3-3); HCO3 ABG 27 mmol/L (21-28); PCO2 ABG 49 mmHg (35-46); PO2 ABG 360 mmHg (65-108); SAT O2 ABG 99 % (92-99)
[2019-08-14 02:20] LABS: FIO2 ABG 100
[2019-08-14 02:22] LABS: BASO % 0 % (0-3); EOS % 0 % (0-3); HEMATOCRIT 31.6 % (36.0-47.0); HEMOGLOBIN 10.4 g/dL (12.0-15.5); LYMPH # 0.3 x10^3/uL (1.0-4.8); LYMPH % 1 % (24-48); MEAN CORPUSCULAR HEMOGLOBIN 27 pg (25-35); MEAN CORPUSCULAR HGB CONC 33 g/dL (31-37); MEAN CORPUSCULAR VOLUME 81 fL (79-100); MONO % 5 % (0-9); NEUT # 17.3 x10^3/uL (1.8-7.7); NEUT % 93 % (31-73); PLATELET COUNT 184 x10^3/uL (140-400); WHITE BLOOD COUNT 18.6 x10^3/uL (4.0-11.0)
[2019-08-14 02:29] LABS: PROTHROMBIN TIME PATIENT 20.3 SEC (11.7-14.0)
[2019-08-14 02:39] LABS: CALCIUM 8.3 mg/dL (8.5-10.1); CREATININE 0.6 mg/dL (0.6-1.0); GFR 100.6; POTASSIUM 3.4 mmol/L (3.5-5.1)
[2019-08-14 02:40] LABS: DIRECT BILIRUBIN 0.2 mg/dL (0.0-0.2); MAGNESIUM 1.7 mg/dL (1.8-2.4); PHOSPHORUS 2.5 mg/dL (2.6-4.7); TOTAL BILIRUBIN 0.6 mg/dL (0.2-1.0); TOTAL PROTEIN 6.2 g/dL (6.4-8.2)
[2019-08-14 02:41] LABS: AMYLASE 329 U/L (25-115); LACTATE DEHYDROGENASE 243 U/L (81-234)
[2019-08-14] MEDS ORDERED: POTASSIUM CHLORIDE 20 MEQ TABLET.ER. PO ONE (03:00)
[2019-08-14] MEDS ORDERED: ESMOLOL 2500MG/250ML PREMIX 250 ML IV PRN (03:30)
[2019-08-14] MEDS ORDERED: DEXTROSE 50% 25 GM / 50ML DISP.SYRIN. IV PRN (05:00)
[2019-08-14] MEDS ORDERED: IV DEXTROSE 5% 250 ML BAG. IV PRN (05:00)
[2019-08-14] MEDS ORDERED: INSULIN REGULAR VIAL 100 UNIT in IV NORMAL SALINE 100ML 100 ML IV PRN (05:00)
--- NOTE | 2019-08-14 07:56 | RAD ---
CHEST AP ONLY History: [facility] organ Comparison: August 13, 2019 Findings: Single view of the chest is submitted. There is again endotracheal tube with tip about 4 cm from cierra. There is enteric catheter coursing into the stomach. There again has been a median sternotomy. Cardiac silhouette is unchanged, not significantly enlarged. There is some increased left base airspace opacity. There is no dependent pleural fluid or pneumothorax. Impression: 1. There is increased left base infiltrate. Electronically signed by: Rick Bolton MD (08/14/2019 7:53 AM) [facility]
[2019-08-14 08:05] LABS: BASE EXCESS ABG 1 mmol/L (-3-3); HCO3 ABG 22 mmol/L (21-28); PCO2 ABG 27 mmHg (35-46); PO2 ABG 334 mmHg (65-108); SAT O2 ABG 99 % (92-99)
[2019-08-14 08:08] LABS: FIO2 ABG 100
[2019-08-14 08:21] LABS: BASO % 0 % (0-3); EOS % 0 % (0-3); HEMATOCRIT 32.8 % (36.0-47.0); HEMOGLOBIN 10.6 g/dL (12.0-15.5); LYMPH # 0.4 x10^3/uL (1.0-4.8); LYMPH % 2 % (24-48); MEAN CORPUSCULAR HEMOGLOBIN 27 pg (25-35); MEAN CORPUSCULAR HGB CONC 32 g/dL (31-37); MEAN CORPUSCULAR VOLUME 82 fL (79-100); MONO # 0.8 x10^3/uL (0.0-1.1); MONO % 4 % (0-9); NEUT # 17.7 x10^3/uL (1.8-7.7); NEUT % 94 % (31-73); PLATELET COUNT 189 x10^3/uL (140-400); RED BLOOD COUNT 4.01 x10^6/uL (3.50-5.40); RED CELL DISTRIBUTION WIDTH 16.3 % (11.5-14.5); WHITE BLOOD COUNT 18.9 x10^3/uL (4.0-11.0)
[2019-08-14 08:28] LABS: PROTHROMBIN TIME PATIENT 20.3 SEC (11.7-14.0)
[2019-08-14 08:35] LABS: CALCIUM 8.8 mg/dL (8.5-10.1); CREATININE 0.6 mg/dL (0.6-1.0); GFR 100.6
[2019-08-14 08:39] LABS: POTASSIUM 2.8 mmol/L (3.5-5.1)
--- NOTE | 2019-08-14 08:42 | PDOC ---
Provider Note Provider Note still alive on vent pending official neuro note re brain , then organ harvesting, not here MARGO MACEDO MD Aug 14, 2019 08:42
[2019-08-14 08:45] LABS: ALBUMIN 3.1 g/dL (3.4-5.0); DIRECT BILIRUBIN 0.2 mg/dL (0.0-0.2); MAGNESIUM 1.8 mg/dL (1.8-2.4); PHOSPHORUS 1.1 mg/dL (2.6-4.7); TOTAL BILIRUBIN 0.6 mg/dL (0.2-1.0); TOTAL PROTEIN 6.5 g/dL (6.4-8.2)
[2019-08-14] MEDS: POTASSIUM CHLORIDE 10MEQ 100 ML IV SCH ×4 (09:43→14:08)
[2019-08-14] MEDS: IV RINGERS,LACTATED 1000ML 1,000 ML IV SCH ×2 (09:45→21:01)
[2019-08-14] MEDS: POTASSIUM PHOSPHATE DIBASIC IV SCH ×2 (09:51→14:08)
[2019-08-14] MEDS: NORMAL SALINE IV SCH ×2 (09:51→14:08)
[2019-08-14 13:47] LABS: BASE EXCESS COOX 1 mmol/L (-3-3); HCO3 COOX 23 mmol/L (21-28); METHEMOGLOBIN 0.4 % (0.0-1.9); OXYHEMOGLOBIN 98.6 %; PCO2 COOX 28 mmHg (35-46); PO2 COOX 366 mmHg (65-108); SAT O2 COOX 99 % (92-99)
[2019-08-14 14:30] LABS: BASO % 0 % (0-3); EOS % 0 % (0-3); HEMATOCRIT 31.3 % (36.0-47.0); HEMOGLOBIN 10.2 g/dL (12.0-15.5); LYMPH # 0.6 x10^3/uL (1.0-4.8); LYMPH % 3 % (24-48); MEAN CORPUSCULAR HEMOGLOBIN 27 pg (25-35); MEAN CORPUSCULAR HGB CONC 33 g/dL (31-37); MEAN CORPUSCULAR VOLUME 81 fL (79-100); MONO # 1.5 x10^3/uL (0.0-1.1); MONO % 8 % (0-9); NEUT # 17.2 x10^3/uL (1.8-7.7); NEUT % 89 % (31-73); PLATELET COUNT 191 x10^3/uL (140-400); RED BLOOD COUNT 3.86 x10^6/uL (3.50-5.40); RED CELL DISTRIBUTION WIDTH 16.1 % (11.5-14.5); WHITE BLOOD COUNT 19.3 x10^3/uL (4.0-11.0)
[2019-08-14 14:50] LABS: CALCIUM 7.9 mg/dL (8.5-10.1); CREATININE 0.5 mg/dL (0.6-1.0); GFR 124.2; POTASSIUM 3.6 mmol/L (3.5-5.1)
[2019-08-14 15:02] LABS: ALBUMIN 2.5 g/dL (3.4-5.0); DIRECT BILIRUBIN 0.1 mg/dL (0.0-0.2); MAGNESIUM 1.6 mg/dL (1.8-2.4); PHOSPHORUS 2.8 mg/dL (2.6-4.7); TOTAL BILIRUBIN 0.4 mg/dL (0.2-1.0); TOTAL PROTEIN 5.4 g/dL (6.4-8.2)
--- NOTE | 2019-08-14 15:29 | RAD ---
EXAM: PORTABLE CHEST 1V INDICATION: Central line placement. TECHNIQUE: Single AP view COMPARISON: Chest x-ray of 08/14/2019 at 4:54 AM FINDINGS: Interval right jugular approach central venous catheter with the tip terminating in the cavoatrial junction. Stable endotracheal intubation with the ET tube terminating approximately 4.87 m above the cierra. Enteric tube also remains present passing below the diaphragms and terminating in the gastric fundus. The heart size is normal. The great vessels appear unremarkable. There is no hilar or mediastinal mass. Lungs show focal airspace opacity in the left midlung similar to prior. Otherwise they are hypoventilatory and unremarkable. There is no pleural effusion or pneumothorax. Bones again show sternotomy surgical changes with intact-appearing cerclage wires. No acute or aggressive osseous lesion is apparent. IMPRESSION: Hypoventilatory chest showing uncomplicated placement of a right jugular approach central venous catheter in the interval with tip near the cavoatrial junction. Stable lines and tubes otherwise noted. Electronically signed by: Estela Cross MD (08/14/2019 3:26 PM) [id number]
[2019-08-14 15:40] LABS: AMYLASE 257 U/L (25-115); LACTATE DEHYDROGENASE 318 U/L (81-234)
--- NOTE | 2019-08-14 15:52 | PDOC ---
PROGRESS NOTES Assessment Assessment NEUROLOGY PROGRESS NOTE 08-13-2019 Brain , 17:09 pm on 08/13/2019. SAH. ICH. IPH. VH. Cerebral edema. Acute obstructive hydrocephalus. Respiratory failure. Ischemic encephalopathy. Hypertensive emergency, BP 239/107 mmHg. Shock, collapse, BP 64/40 mmHg Leukocytosis. Heart disease, aortic stenosis. Falls. Left frontal and parietal fracture. Elevated PT/INR 45.3/4.7. Brain at 17:09 pm on 08/13/2019. Objective Objective Vital Signs Date Time Temp Pulse Resp B/P (MAP) Pulse Ox O2 Delivery O2 Flow Rate FiO2 08/14/19 11:30 100 V60 08/14/19 01:25 98.2 118 16 163/86 98.2 Intake and Output 08/14/19 07:00 Intake Total 1295 ml Balance 1295 ml Intake IV Total 1295 ml Vitals Signs Vitals VS - Last 72 Hours, by Label Date Time Temp Pulse Resp B/P (MAP) Pulse Ox O2 Delivery O2 Flow Rate FiO2 08/14/19 11:30 100 V60 08/14/19 08:08 100 V60 08/14/19 04:36 100 V60 08/14/19 01:59 100 V60 08/14/19 01:25 98.2 118 16 163/86 98.2 08/14/19 00:40 98.4 114 16 148/76 98.4 08/14/19 00:25 98.4 122 16 125/62 98.4 08/13/19 22:34 100 V60 Laboratory Laboratory Laboratory Tests Test 08/13/19 20:15 08/13/19 20:45 08/14/19 00:44 08/14/19 02:00 White Blood Count 19.8 x10^3/uL (4.0-11.0) 18.6 x10^3/uL (4.0-11.0) Red Blood Count 4.39 x10^6/uL (3.50-5.40) 3.90 x10^6/uL (3.50-5.40) Hemoglobin 11.7 g/dL (12.0-15.5) 10.4 g/dL (12.0-15.5) Hematocrit 35.9 % (36.0-47.0) 31.6 % (36.0-47.0) Mean Corpuscular Volume 82 fL (79-100) 81 fL (79-100) Mean Corpuscular Hemoglobin 27 pg (25-35) 27 pg (25-35) Mean Corpuscular Hemoglobin Concent 33 g/dL (31-37) 33 g/dL (31-37) Red Cell Distribution Width 16.2 % (11.5-14.5) 16.0 % (11.5-14.5) Platelet Count 227 x10^3/uL (140-400) 184 x10^3/uL (140-400) Neutrophils (%) (Auto) 85 % (31-73) 93 % (31-73) Lymphocytes (%) (Auto) 5 % (24-48) 1 % (24-48) Monocytes (%) (Auto) 10 % (0-9) 5 % (0-9) Eosinophils (%) (Auto) 0 % (0-3) 0 % (0-3) Basophils (%) (Auto) 0 % (0-3) 0 % (0-3) Neutrophils # (Auto) 16.8 x10^3/uL (1.8-7.7) 17.3 x10^3/uL (1.8-7.7) Lymphocytes # (Auto) 0.9 x10^3/uL (1.0-4.8) 0.3 x10^3/uL (1.0-4.8) Monocytes # (Auto) 2.1 x10^3/uL (0.0-1.1) 1.0 x10^3/uL (0.0-1.1) Eosinophils # (Auto) 0.0 x10^3/uL (0.0-0.7) 0.0 x10^3/uL (0.0-0.7) Basophils # (Auto) 0.0 x10^3/uL (0.0-0.2) 0.0 x10^3/uL (0.0-0.2) Prothrombin Time 22.6 SEC (11.7-14.0) 20.3 SEC (11.7-14.0) Prothromb Time International Ratio 2.0 (0.8-1.1) 1.8 (0.8-1.1) Activated Partial Thromboplast Time 49 SEC (24-38) 43 SEC (24-38) Fibrinogen 450 mg/dL (200-440) 494 mg/dL (200-440) O2 Saturation 99 % (92-99) Arterial Blood pH 7.43 (7.35-7.45) Arterial Blood pCO2 at Patient Temp 37 mmHg (35-46) Arterial Blood pO2 at Patient Temp 467 mmHg (65-108) Arterial Blood HCO3 24 mmol/L (21-28) Arterial Blood Base Excess 0 mmol/L (-3-3) FiO2 100 Sodium Level 143 mmol/L (136-145) 144 mmol/L (136-145) Potassium Level 3.5 mmol/L (3.5-5.1) 3.4 mmol/L (3.5-5.1) Chloride Level 107 mmol/L (98-107) 107 mmol/L (98-107) Carbon Dioxide Level 26 mmol/L (21-32) 29 mmol/L (21-32) Anion Gap 10 (6-14) 8 (6-14) Blood Urea Nitrogen 8 mg/dL (7-20) 7 mg/dL (7-20) Creatinine 0.6 mg/dL (0.6-1.0) 0.6 mg/dL (0.6-1.0) Estimated GFR (Cockcroft-Gault) 100.6 100.6 Glucose Level 130 mg/dL (70-99) 190 mg/dL (70-99) Lactic Acid Level 0.6 mmol/L (0.4-2.0) 0.7 mmol/L (0.4-2.0) Calcium Level 8.3 mg/dL (8.5-10.1) 8.3 mg/dL (8.5-10.1) Ionized Calcium 1.13 mmol/L (1.13-1.32) 1.14 mmol/L (1.13-1.32) Phosphorus Level 2.7 mg/dL (2.6-4.7) 2.5 mg/dL (2.6-4.7) Magnesium Level 1.9 mg/dL (1.8-2.4) 1.7 mg/dL (1.8-2.4) Total Bilirubin 0.6 mg/dL (0.2-1.0) 0.6 mg/dL (0.2-1.0) Direct Bilirubin 0.1 mg/dL (0.0-0.2) 0.2 mg/dL (0.0-0.2) Gamma Glutamyl Transpeptidase 37 U/L (5-55) 31 U/L (5-55) Aspartate Amino Transf (AST/SGOT) 31 U/L (15-37) 27 U/L (15-37) Alanine Aminotransferase (ALT/SGPT) 24 U/L (14-59) 26 U/L (14-59) Alkaline Phosphatase 77 U/L (46-116) 69 U/L (46-116) Lactate Dehydrogenase 292 U/L (81-234) 243 U/L (81-234) Creatine Kinase 75 U/L (26-192) 69 U/L (26-192) Troponin I Quantitative 0.717 ng/mL (0.000-0.055) 0.383 ng/mL (0.000-0.055) Total Protein 6.5 g/dL (6.4-8.2) 6.2 g/dL (6.4-8.2) Albumin 3.3 g/dL (3.4-5.0) 3.0 g/dL (3.4-5.0) Amylase Level 233 U/L (25-115) 329 U/L (25-115) Lipase 50 U/L (73-393) 56 U/L (73-393) Urine Collection Type Unknown Urine Color Yellow Urine Clarity Clear Urine pH 6.0 (<5.0-8.0) Urine Specific [place] <=1.005 (1.000-1.030) Urine Protein 30 mg/dL (NEG-TRACE) Urine Glucose (UA) Negative mg/dL (NEG) Urine Ketones (Stick) 15 mg/dL (NEG) Urine Blood Large (NEG) Urine Nitrite Negative (NEG) Urine Bilirubin Negative (NEG) Urine Urobilinogen Dipstick 0.2 mg/dL (0.2 mg/dL) Urine Leukocyte Esterase Large (NEG) Urine RBC >40 /HPF (0-2) Urine WBC 20-40 /HPF (0-4) Urine Bacteria 0 /HPF (0-FEW) Urine Mucus Slight /LPF Glucose (Fingerstick) 174 mg/dL (70-99) Test 08/14/19 02:02 08/14/19 04:12 08/14/19 04:58 08/14/19 05:59 O2 Saturation 99 % (92-99) Arterial Blood pH 7.36 (7.35-7.45) Arterial Blood pCO2 at Patient Temp 49 mmHg (35-46) Arterial Blood pO2 at Patient Temp 360 mmHg (65-108) Arterial Blood HCO3 27 mmol/L (21-28) Arterial Blood Base Excess 1 mmol/L (-3-3) FiO2 100 Glucose (Fingerstick) 214 mg/dL (70-99) 241 mg/dL (70-99) 202 mg/dL (70-99) Test 08/14/19 07:11 08/14/19 07:58 08/14/19 08:00 08/14/19 08:02 Glucose (Fingerstick) 236 mg/dL (70-99) 215 mg/dL (70-99) White Blood Count 18.9 x10^3/uL (4.0-11.0) Red Blood Count 4.01 x10^6/uL (3.50-5.40) Hemoglobin 10.6 g/dL (12.0-15.5) Hematocrit 32.8 % (36.0-47.0) Mean Corpuscular Volume 82 fL (79-100) Mean Corpuscular Hemoglobin 27 pg (25-35) Mean Corpuscular Hemoglobin Concent 32 g/dL (31-37) Red Cell Distribution Width 16.3 % (11.5-14.5) Platelet Count 189 x10^3/uL (140-400) Neutrophils (%) (Auto) 94 % (31-73) Lymphocytes (%) (Auto) 2 % (24-48) Monocytes (%) (Auto) 4 % (0-9) Eosinophils (%) (Auto) 0 % (0-3) Basophils (%) (Auto) 0 % (0-3) Neutrophils # (Auto) 17.7 x10^3/uL (1.8-7.7) Lymphocytes # (Auto) 0.4 x10^3/uL (1.0-4.8) Monocytes # (Auto) 0.8 x10^3/uL (0.0-1.1) Eosinophils # (Auto) 0.0 x10^3/uL (0.0-0.7) Basophils # (Auto) 0.0 x10^3/uL (0.0-0.2) Prothrombin Time 20.3 SEC (11.7-14.0) Prothromb Time International Ratio 1.8 (0.8-1.1) Fibrinogen 601 mg/dL (200-440) Sodium Level 138 mmol/L (136-145) Potassium Level 2.8 mmol/L (3.5-5.1) Chloride Level 104 mmol/L (98-107) Carbon Dioxide Level 26 mmol/L (21-32) Anion Gap 8 (6-14) Blood Urea Nitrogen 6 mg/dL (7-20) Creatinine 0.6 mg/dL (0.6-1.0) Estimated GFR (Cockcroft-Gault) 100.6 Glucose Level 223 mg/dL (70-99) Lactic Acid Level 2.1 mmol/L (0.4-2.0) Calcium Level 8.8 mg/dL (8.5-10.1) Ionized Calcium 1.14 mmol/L (1.13-1.32) Phosphorus Level 1.1 mg/dL (2.6-4.7) Magnesium Level 1.8 mg/dL (1.8-2.4) Total Bilirubin 0.6 mg/dL (0.2-1.0) Direct Bilirubin 0.2 mg/dL (0.0-0.2) Gamma Glutamyl Transpeptidase 33 U/L (5-55) Aspartate Amino Transf (AST/SGOT) 28 U/L (15-37) Alanine Aminotransferase (ALT/SGPT) 25 U/L (14-59) Alkaline Phosphatase 73 U/L (46-116) Creatine Kinase 56 U/L (26-192) Troponin I Quantitative 0.279 ng/mL (0.000-0.055) Total Protein 6.5 g/dL (6.4-8.2) Albumin 3.1 g/dL (3.4-5.0) Lipase 37 U/L (73-393) O2 Saturation 99 % (92-99) Arterial Blood pH 7.54 (7.35-7.45) Arterial Blood pCO2 at Patient Temp 27 mmHg (35-46) Arterial Blood pO2 at Patient Temp 334 mmHg (65-108) Arterial Blood HCO3 22 mmol/L (21-28) Arterial Blood Base Excess 1 mmol/L (-3-3) FiO2 100 Test 08/14/19 10:58 08/14/19 13:40 08/14/19 14:10 08/14/19 14:18 Glucose (Fingerstick) 167 mg/dL (70-99) 104 mg/dL (70-99) O2 Saturation 99 % (92-99) Arterial Blood pH 7.53 (7.35-7.45) Arterial Blood pCO2 at Patient Temp 28 mmHg (35-46) Arterial Blood pO2 at Patient Temp 366 mmHg (65-108) Arterial Blood HCO3 23 mmol/L (21-28) Arterial Blood Base Excess 1 mmol/L (-3-3) Oxyhemoglobin 98.6 % Methemoglobin 0.4 % (0.0-1.9) Carbon Monoxide, Quantitative 0.3 % (0.0-1.9) FiO2 100 White Blood Count 19.3 x10^3/uL (4.0-11.0) Red Blood Count 3.86 x10^6/uL (3.50-5.40) Hemoglobin 10.2 g/dL (12.0-15.5) Hematocrit 31.3 % (36.0-47.0) Mean Corpuscular Volume 81 fL (79-100) Mean Corpuscular Hemoglobin 27 pg (25-35) Mean Corpuscular Hemoglobin Concent 33 g/dL (31-37) Red Cell Distribution Width 16.1 % (11.5-14.5) Platelet Count 191 x10^3/uL (140-400) Neutrophils (%) (Auto) 89 % (31-73) Lymphocytes (%) (Auto) 3 % (24-48) Monocytes (%) (Auto) 8 % (0-9) Eosinophils (%) (Auto) 0 % (0-3) Basophils (%) (Auto) 0 % (0-3) Neutrophils # (Auto) 17.2 x10^3/uL (1.8-7.7) Lymphocytes # (Auto) 0.6 x10^3/uL (1.0-4.8) Monocytes # (Auto) 1.5 x10^3/uL (0.0-1.1) Eosinophils # (Auto) 0.0 x10^3/uL (0.0-0.7) Basophils # (Auto) 0.0 x10^3/uL (0.0-0.2) Ionized Calcium 1.18 mmol/L (1.13-1.32) Test 08/14/19 14:20 Prothrombin Time 21.0 SEC (11.7-14.0) Prothromb Time International Ratio 1.8 (0.8-1.1) Fibrinogen 580 mg/dL (200-440) Sodium Level 145 mmol/L (136-145) Potassium Level 3.6 mmol/L (3.5-5.1) Chloride Level 113 mmol/L (98-107) Carbon Dioxide Level 24 mmol/L (21-32) Anion Gap 8 (6-14) Blood Urea Nitrogen 9 mg/dL (7-20) Creatinine 0.5 mg/dL (0.6-1.0) Estimated GFR (Cockcroft-Gault) 124.2 Glucose Level 106 mg/dL (70-99) Calcium Level 7.9 mg/dL (8.5-10.1) Phosphorus Level 2.8 mg/dL (2.6-4.7) Magnesium Level 1.6 mg/dL (1.8-2.4) Total Bilirubin 0.4 mg/dL (0.2-1.0) Direct Bilirubin 0.1 mg/dL (0.0-0.2) Gamma Glutamyl Transpeptidase 30 U/L (5-55) Aspartate Amino Transf (AST/SGOT) 26 U/L (15-37) Alanine Aminotransferase (ALT/SGPT) 24 U/L (14-59) Alkaline Phosphatase 58 U/L (46-116) Total Protein 5.4 g/dL (6.4-8.2) Albumin 2.5 g/dL (3.4-5.0) Lipase 38 U/L (73-393) Medication Medications Current Medications Dextrose (Dextrose 50%-Water Syringe) 12.5 gm PRN Q15MIN PRN IV LOW BLOOD SUGAR; Start 08/14/19 at 05:00 Dextrose (Iv Dextrose 5%) 250 ml PRN Q15MIN PRN IV LOW BLOOD SUGAR; Start 08/14/19 at 05:00 Esmolol HCl 250 ml @ 17.4 mls/hr CONT PRN IV SEE I/O RECORD Last administered on 08/14/19at 03:36; Start 08/14/19 at 03:30 Insulin Human Regular 100 unit/ Sodium Chloride 101 ml @ 0 mls/hr CONT PRN IV SEE I/O RECORD Last administered on 08/14/19at 05:00; Start 08/14/19 at 05:00 Nicardipine HCl 50 mg/Sodium Chloride 250 ml @ 25 mls/hr CONT PRN IV SEE I/O RECORD Last administered on 08/14/19at 04:17; Start 08/14/19 at 04:00 Potassium Chloride/Water 100 ml @ 100 mls/hr Q1H IV Last administered on 08/14/19at 14:08; Start 08/14/19 at 10:00; Stop 08/14/19 at 13:59; Status DC Potassium Phosphate 30 mmol/ Sodium Chloride 260 ml @ 65 mls/hr Q2H IV Last administered on 08/14/19at 14:08; Start 08/14/19 at 10:00; Stop 08/14/19 at 13:59; Status DC Potassium Chloride (Klor-Con) 40 meq 1X ONCE PO Last administered on 08/13/19at 23:41; Start 08/13/19 at 23:45; Stop 08/13/19 at 23:46; Status DC Potassium Chloride (Klor-Con) 40 meq 1X ONCE PO Last administered on 08/14/19at 03:04; Start 08/14/19 at 03:00; Stop 08/14/19 at 03:01; Status DC Ringer's Solution 1,000 ml @ 100 mls/hr Q10H IV Last administered on 08/14/19at 09:45; Start 08/13/19 at 21:45 Ringer's Solution 1,000 ml @ 999 mls/hr 1X ONCE IV Last administered on 08/13/19at 20:42; Start 08/13/19 at 20:45; Stop 08/13/19 at 21:45; Status DC Ringer's Solution 1,000 ml @ 999 mls/hr 1X ONCE IV Last administered on 08/13/19at 23:21; Start 08/13/19 at 23:30; Stop 08/14/19 at 00:30; Status DC Vasopressin 20 unit/Dextrose 101 ml @ 12 mls/hr CONT PRN IV SEE I/O RECORD Last administered on 08/14/19at 00:32; Start 08/14/19 at 00:30 Vecuronium [place] (Norcuron Bolus) 10 mg 1X ONCE IV Last administered on 07/16 02/03at 21:47; Start 08/13/19 at 22:00; Stop 08/13/19 at 22:01; Status DC Comment Review of Relevant I have reviewed the following items genny (where applicable) has been applied. ALYSSA SORENSON MD Aug 14, 2019 15:52
[2019-08-14] MEDS ORDERED: MAGNESIUM SULFATE 2GM 50 ML IV ONE (16:30)
[2019-08-14] MEDS ORDERED: ALBUMIN HUMAN 5% 250 ML IV ONE (16:30)
[2019-08-14] MEDS ORDERED: POTASSIUM PHOSPHATE DIBASIC IV ONE (17:00)
[2019-08-14] MEDS ORDERED: NORMAL SALINE IV ONE (17:00)
[2019-08-14 20:23] LABS: PROTHROMBIN TIME PATIENT 22.3 SEC (11.7-14.0)
[2019-08-14 20:26] LABS: BASE EXCESS ABG -4 mmol/L (-3-3); HCO3 ABG 20 mmol/L (21-28); PCO2 ABG 31 mmHg (35-46); PO2 ABG 76 mmHg (65-108); SAT O2 ABG 94 % (92-99)
--- NOTE | 2019-08-14 20:33 | RAD ---
Single view chest dated 08/14/2019. Comparison made to study dated same day. CLINICAL INDICATION: Intubation. FINDINGS: Single supine portable exam performed. Endotracheal tube, nasogastric tube and right internal jugular catheter is in place, unchanged. Heart and mediastinal contours are stable. The patient is status post median sternotomy. There is some patchy increased density at both lung bases, similar to prior study. No pleural effusion or pneumothorax. IMPRESSION: 1. Patchy bibasilar airspace disease, atelectasis versus early pneumonia. 2. Stable position of tubes and lines. Electronically signed by: Live Perez MD (08/14/2019 8:30 PM) [id number]
[2019-08-14 20:34] LABS: FIO2 ABG 40
[2019-08-14 20:38] LABS: CALCIUM 8.7 mg/dL (8.5-10.1); CREATININE 0.6 mg/dL (0.6-1.0); GFR 100.6; POTASSIUM 4.3 mmol/L (3.5-5.1)
[2019-08-14 20:41] LABS: ALBUMIN 3.1 g/dL (3.4-5.0); DIRECT BILIRUBIN 0.1 mg/dL (0.0-0.2); MAGNESIUM 2.6 mg/dL (1.8-2.4); PHOSPHORUS 5.4 mg/dL (2.6-4.7); TOTAL BILIRUBIN 0.5 mg/dL (0.2-1.0); TOTAL PROTEIN 6.2 g/dL (6.4-8.2)
[2019-08-14] MEDS ORDERED: DESMOPRESSIN 4 MCG/ML AMPUL. IV ONE (20:45)
[2019-08-14 21:07] LABS: AMYLASE 170 U/L (25-115); LACTATE DEHYDROGENASE 274 U/L (81-234)
[2019-08-14 21:07] LABS: AMYLASE 208 U/L (25-115); LACTATE DEHYDROGENASE 319 U/L (81-234)
[2019-08-14 21:45] LABS: BASO % 0 % (0-3); EOS % 0 % (0-3); HEMATOCRIT 30.9 % (36.0-47.0); LYMPH # 0.6 x10^3/uL (1.0-4.8); LYMPH % 2 % (24-48); MEAN CORPUSCULAR HEMOGLOBIN 27 pg (25-35); MEAN CORPUSCULAR HGB CONC 33 g/dL (31-37); MEAN CORPUSCULAR VOLUME 82 fL (79-100); MONO % 8 % (0-9); NEUT # 21.9 x10^3/uL (1.8-7.7); NEUT % 90 % (31-73); PLATELET COUNT 182 x10^3/uL (140-400); RED BLOOD COUNT 3.78 x10^6/uL (3.50-5.40); RED CELL DISTRIBUTION WIDTH 16.3 % (11.5-14.5); WHITE BLOOD COUNT 24.5 x10^3/uL (4.0-11.0)
[2019-08-15 00:21] LABS: BASE EXCESS ABG -2 mmol/L (-3-3); HCO3 ABG 21 mmol/L (21-28); PCO2 ABG 28 mmHg (35-46); PO2 ABG 425 mmHg (65-108); SAT O2 ABG 99 % (92-99)
[2019-08-15 00:27] LABS: FIO2 ABG 100
[2019-08-15 03:04] LABS: BASO % 0 % (0-3); EOS % 0 % (0-3); HEMOGLOBIN 10.2 g/dL (12.0-15.5); LYMPH # 0.5 x10^3/uL (1.0-4.8); LYMPH % 2 % (24-48); MEAN CORPUSCULAR HEMOGLOBIN 27 pg (25-35); MEAN CORPUSCULAR HGB CONC 33 g/dL (31-37); MEAN CORPUSCULAR VOLUME 81 fL (79-100); MONO # 1.9 x10^3/uL (0.0-1.1); MONO % 8 % (0-9); NEUT # 22.8 x10^3/uL (1.8-7.7); NEUT % 90 % (31-73); PLATELET COUNT 182 x10^3/uL (140-400); RED BLOOD COUNT 3.81 x10^6/uL (3.50-5.40); RED CELL DISTRIBUTION WIDTH 16.5 % (11.5-14.5); WHITE BLOOD COUNT 25.3 x10^3/uL (4.0-11.0)
[2019-08-15 03:18] LABS: ALBUMIN 2.9 g/dL (3.4-5.0); CALCIUM 8.6 mg/dL (8.5-10.1); CREATININE 0.5 mg/dL (0.6-1.0); DIRECT BILIRUBIN 0.1 mg/dL (0.0-0.2); GFR 124.2; MAGNESIUM 2.2 mg/dL (1.8-2.4); PHOSPHORUS 2.9 mg/dL (2.6-4.7); POTASSIUM 3.7 mmol/L (3.5-5.1); TOTAL BILIRUBIN 0.5 mg/dL (0.2-1.0)
[2019-08-15 03:32] LABS: BASE EXCESS ABG 0 mmol/L (-3-3); HCO3 ABG 22 mmol/L (21-28); PCO2 ABG 27 mmHg (35-46); PO2 ABG 489 mmHg (65-108); SAT O2 ABG 99 % (92-99)
[2019-08-15 04:04] LABS: FIO2 ABG 100
[2019-08-15] MEDS: POTASSIUM PHOSPHATE DIBASIC 15 MMOL in IV NORMAL SALINE 250ML 250 ML IV SCH ×2 (04:39→05:54)
[2019-08-15] MEDS: IV RINGERS,LACTATED 1000ML 1,000 ML IV SCH ×2 (06:50→15:28)
[2019-08-15] MEDS ORDERED: IV RINGERS,LACTATED 500ML 500 ML IV ONE (07:00)
[2019-08-15 08:09] LABS: BASO % 0 % (0-3); EOS % 0 % (0-3); HEMATOCRIT 31.5 % (36.0-47.0); HEMOGLOBIN 10.2 g/dL (12.0-15.5); LYMPH # 0.6 x10^3/uL (1.0-4.8); LYMPH % 3 % (24-48); MEAN CORPUSCULAR HEMOGLOBIN 26 pg (25-35); MEAN CORPUSCULAR HGB CONC 32 g/dL (31-37); MEAN CORPUSCULAR VOLUME 82 fL (79-100); MONO # 1.7 x10^3/uL (0.0-1.1); MONO % 8 % (0-9); NEUT # 20.1 x10^3/uL (1.8-7.7); NEUT % 90 % (31-73); PLATELET COUNT 176 x10^3/uL (140-400); RED BLOOD COUNT 3.85 x10^6/uL (3.50-5.40); RED CELL DISTRIBUTION WIDTH 16.8 % (11.5-14.5); WHITE BLOOD COUNT 22.5 x10^3/uL (4.0-11.0)
[2019-08-15 08:20] LABS: PROTHROMBIN TIME PATIENT 19.6 SEC (11.7-14.0)
[2019-08-15 08:29] LABS: CALCIUM 8.3 mg/dL (8.5-10.1); CREATININE 0.6 mg/dL (0.6-1.0); GFR 100.6
[2019-08-15 08:38] LABS: ALBUMIN 2.8 g/dL (3.4-5.0); DIRECT BILIRUBIN 0.1 mg/dL (0.0-0.2); MAGNESIUM 2.1 mg/dL (1.8-2.4); PHOSPHORUS 4.9 mg/dL (2.6-4.7); TOTAL BILIRUBIN 0.4 mg/dL (0.2-1.0); TOTAL PROTEIN 5.9 g/dL (6.4-8.2)
[2019-08-15 08:40] LABS: POTASSIUM 4.7 mmol/L (3.5-5.1)
--- NOTE | 2019-08-15 08:45 | PDOC ---
Provider Note Provider Note remains on vent , fiull resp assist pending organ harvesting MARGO MACEDO MD Aug 15, 2019 08:45
--- NOTE | 2019-08-15 10:42 | RAD ---
Single view chest obtained 08/15/2019 because of intubation COMPARISON: 08/14/2019 chest x-ray obtained at 8:01 PM. FINDINGS: Patient remains intubated with the ET tube terminating 5.3 cm above the cierra and an enteric tube passes below the diaphragms terminating in the left upper quadrant abdomen likely in the stomach, similar to prior. Right jugular approach central venous catheter is present with the tip near the cavoatrial junction. Heart is normal in size. Poststernotomy surgical changes are present. There is slight prominence of the mediastinal contours, likely reflecting differences in patient positioning. The lung volumes are slightly low but there are interval development of/increase in bilateral left greater than right basilar opacities. No pleural effusion. No pneumothorax. Bony thorax intact. Included upper abdomen is unremarkable. IMPRESSION: Worsening bilateral pneumonia with stable endotracheal intubation. No pneumothorax. Electronically signed by: Estela Cross MD (08/15/2019 10:38 AM) [id number]
--- NOTE | 2019-08-15 11:14 | RAD ---
EXAM: CT Chest, Abdomen, and Pelvis without IV contrast INDICATION: Organ donor harvest TECHNIQUE: Multi-detector row CT images were acquired from the thoracic inlet through the ischial tuberosities without the use of IV contrast. Sagittal and coronal images were acquired from the transaxial data. All CT scans performed at this facility utilize dose optimization techniques as appropriate to the exam, including the following: Automated exposure control and adjustment of the mA and/or KV according to patient size (this includes techniques or standardized protocols for targeted exams where dose is indication/reason for exam). ORAL CONTRAST: Not administered COMPARISON: Noncontrast head CT 08/13/2019, chest x-rays from earlier the same day and the previous day. FINDINGS: The absence of IV contrast limits evaluation of soft tissue pathology. CHEST: Right jugular approach central venous catheter terminates near the cavoatrial junction. Endotracheal tube is present in satisfactory position. An enteric tube is present retroflexed in the gastric fundus. CARDIOVASCULAR: Post surgical changes from aortic valve prosthesis are present. Scattered arterial calcifications in the thoracic aorta without aneurysmal dilation. There is mild enlargement of left ventricular chamber with calcific densities in the left ventricle that could reflect papillary muscle calcification. MEDIASTINUM & DANIEL: No adenopathy or masses. LUNGS: Patchy bilateral peripheral opacities are present. This is greater on the left lower lobe than in the right lower lobe. The lingula shows peripheral parenchymal consolidation with air bronchograms of the apical segment left upper lobe is clear. Minimal platelike atelectasis is present in the posterior right upper lobe which is otherwise clear as well. The right middle lobe is clear. PLEURAL SPACE: No pleural effusions or pneumothorax. OSSEOUS & SOFT TISSUE: Unremarkable ABDOMEN/PELVIS: LIVER: Unremarkable BILIARY SYSTEM: Layering densities in the gallbladder could reflect sludge or tiny gallstones. Bile ducts are not dilated. PANCREAS: There is subtle peripancreatic soft tissue stranding is present. Otherwise the pancreas is unremarkable. 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 No hydronephrosis or radiopaque stones. BLADDER: Decompressed by an indwelling Knox catheter partly obscured by streak artifact from right hip arthroplasty. REPRODUCTIVE ORGANS: Calcified uterine leiomyoma. Ovaries not well seen. GASTROINTESTINAL: No findings of bowel obstruction or perforation. Extensive colonic diverticulosis is present. Bowel containing right inguinal hernia is noted. Appendix is not seen and may be surgically absent. MESENTERY/PERITONEUM/RETROPERITONEUM: Unremarkable VASCULAR: The left femoral arterial line is present. There are scattered arterial calcifications, including circumferential calcified plaque in the right external iliac artery. LYMPH NODES: No adenopathy OSSEOUS & SOFT TISSUES: Right hip arthroplasty. IMPRESSION: 1. Patchy bilateral airspace opacities in the lungs, primarily lower lobe, suspicious for pneumonitis. 2. Horseshoe kidney with mild bilateral perirenal and mild peripancreatic soft tissue stranding. Otherwise unremarkable solid abdominal organs without IV contrast. Electronically signed by: Estela Cross MD (08/15/2019 11:11 AM) [id number]
[2019-08-15] MEDS ORDERED: ALBUMIN HUMAN 5% 250 ML IV ONE (16:00)
[2019-08-15 16:50] LABS: BASE EXCESS ABG -3 mmol/L (-3-3); HCO3 ABG 21 mmol/L (21-28); PCO2 ABG 31 mmHg (35-46); PO2 ABG 470 mmHg (65-108)
[2019-08-15 16:51] LABS: FIO2 ABG 100; SAT O2 ABG 99 % (92-99)
[2019-08-15 16:57] LABS: BASE EXCESS ABG -1 mmol/L (-3-3); HCO3 ABG 19 mmol/L (21-28); PCO2 ABG 21 mmHg (35-46); PO2 ABG > 503 mmHg (65-108); SAT O2 ABG 99 % (92-99)
[2019-08-15 17:00] LABS: FIO2 ABG 100
[2019-08-15 17:20] LABS: BASO % 0 % (0-3); EOS % 0 % (0-3); HEMATOCRIT 27.1 % (36.0-47.0); LYMPH # 0.8 x10^3/uL (1.0-4.8); LYMPH % 5 % (24-48); MEAN CORPUSCULAR HEMOGLOBIN 27 pg (25-35); MEAN CORPUSCULAR HGB CONC 33 g/dL (31-37); MEAN CORPUSCULAR VOLUME 81 fL (79-100); MONO # 1.3 x10^3/uL (0.0-1.1); MONO % 7 % (0-9); NEUT # 15.2 x10^3/uL (1.8-7.7); NEUT % 88 % (31-73); PLATELET COUNT 143 x10^3/uL (140-400); RED BLOOD COUNT 3.35 x10^6/uL (3.50-5.40); RED CELL DISTRIBUTION WIDTH 16.7 % (11.5-14.5); WHITE BLOOD COUNT 17.3 x10^3/uL (4.0-11.0)
[2019-08-15 17:30] LABS: CALCIUM 8.4 mg/dL (8.5-10.1); CREATININE 0.5 mg/dL (0.6-1.0); GFR 124.2; POTASSIUM 3.5 mmol/L (3.5-5.1)
[2019-08-15 17:35] LABS: ALBUMIN 2.8 g/dL (3.4-5.0); DIRECT BILIRUBIN 0.1 mg/dL (0.0-0.2); PHOSPHORUS 1.4 mg/dL (2.6-4.7); TOTAL BILIRUBIN 0.4 mg/dL (0.2-1.0); TOTAL PROTEIN 5.4 g/dL (6.4-8.2)
[2019-08-15 17:36] LABS: PROTHROMBIN TIME PATIENT 21.8 SEC (11.7-14.0)
[2019-08-15] MEDS ORDERED: NORMAL SALINE IV SCH (18:15)
[2019-08-15] MEDS ORDERED: POTASSIUM PHOSPHATE DIBASIC IV SCH (18:15)
[2019-08-15 18:42] LABS: BILIRUBIN,URINE NEGATIVE (NEG); CLARITY,URINE CLEAR; NITRITE,URINE NEGATIVE (NEG); PROTEIN,URINE 30 mg/dL (NEG-TRACE); UROBILINOGEN,URINE 0.2 mg/dL (0.2 mg/dL)
[2019-08-15 18:45] LABS: COLOR,URINE PINK
[2019-08-15 18:52] LABS: BACTERIA,URINE MANY /HPF (0-FEW); RBC,URINE >40 /HPF (0-2)
[2019-08-15] MEDS ORDERED: ceFAZolin SODIUM IV Push 1 GM VIAL. IVP ONE (19:45)
[2019-08-15] MEDS ORDERED: ROCURONIUM 50 MG/5 ML VIAL. ONE ×2 (20:41→21:18)
[2019-08-15] MEDS ORDERED: SEVOFLURANE 31 TO 60 MINUTES. IH ONE (21:02)
[2019-08-16 00:07] LABS: HEMOGLOBIN A1C 5.9 % (4.8-5.6)
--- NOTE | 2019-08-16 07:56 | PDOC ---
Provider Note Provider Note [id number] MARGO MACEDO MD Aug 16, 2019 07:56
--- NOTE | 2019-08-16 08:09 | DS ---
DATE OF DISCHARGE: SUMMARY HOSPITAL SUMMARY: A 64-year-old white female with history of aortic valve replacement, on warfarin, had a fall and had a skull fracture and progressively large subdural and subarachnoid hematoma. She appeared to suffer herniation through the night after admission despite fresh frozen plasma and vitamin K as her INR was high at 4.7 on admission. She was kept alive on a ventilator until her organs could be harvested by [facility] and she succumbed to her illness. FINAL DIAGNOSES: Traumatic skull fracture and subarachnoid hemorrhage from a fall, fatal. OPERATIONS, PROCEDURES, COMPLICATIONS: None. CONSULTATIONS: Dr. Brito at [facility]. DISPOSITION: No postmortem exam was requested. MARGO MACEDO MD DR: GENE/nts JOB#: [id number] / [id number]
== END 2019-08-16 02:09 | disposition expired ==
LOC: OPS 17:08 → 1 WEST ICU 18:36 → OPS 08-16 02:09
PROVIDERS: ATTEND Surgery
DX: Z52.6 Liver donor (principal); Z52.4 Kidney donor; Z79.01 Long term (current) use of anticoagulants; Z79.899 Other long term (current) drug therapy; Z79.4 Long term (current) use of insulin
CPT/HCPCS: 36415; 36600; 71045; 71250; 74176; 80048; 80076; 81001; 82150; 82310; 82550; 82805; 82962; 82977; 83036; 83605; 83615; 83690; 83735; 84100; 84484; 85025; 85384; 85610; 85730; 86850; 86900; 86901; 86920; 86927; 87040; 87070; 87086; 87186; 87205; 94003; C1713; J0690; J1815; J2597; J3475; J3480; J3490; J7050; J7060; J7120; P9017; P9041; S2055; G0378; J7030